=== PATIENT | male | born 1980 | race African-American/Black ===

== ENCOUNTER 2018-01-26 15:42 | Emergency (ER) | payer OTHER ==
[2018-01-26 16:06] VITALS: BP 144/100; PULSE 77; TEMP 98; BMI 34.9
--- NOTE | 2018-01-26 16:07 | PDOC ---
Rapid Medical Evaluation Time Seen by Provider: 01/26/18 16:01 Medical Evaluation: Allergies Allergy/AdvReac Type Severity Reaction Status Date / Time Penicillins Allergy Intermediate Rash Verified 05/11/16 15:28 01/26/18 16:01 The patient complains of: recent dx of gallstones, changed diet since but ate sausage this am and now with epigastric pain and intermittent lscp ( aching) . also c/o tingling to BUE, no weakness/ numbness, no hx htn On brief exam: bp 144/100, tenderness to epigastric area and mild ruq [id number]. no cva tenderness, lcta The patient ordered for: ekg, labs, iv, protonix The patient to proceed to the ED Discharge Disposition - Diagnosis Epigastric abdominal pain - Referrals - Patient Instructions - Post Discharge Activity
[2018-01-26] MEDS ORDERED: PANTOPRAZOLE SODIUM 40 MG in SODIUM CHLORIDE 100 ML IVPB ONE (16:08)
[2018-01-26] MEDS ORDERED: MAG HYDROX/AL HYDROX/SIMETH 30 ML UNIT-DOSE CUP PO ONE (16:36)
[2018-01-26 16:42] LABS: BASO % 0.6 % (0-2.0); EOS % 0.8 % (0-4.5); HEMATOCRIT 43.6 % (35.4-49); HEMOGLOBIN 14.6 GM/dL (11.7-16.9); LYMPH % 29.2 % (8-40); MCH 30.1 pg (25.7-33.7); MCHC 33.6 g/dl (32.0-35.9); MEAN CELL VOLUME 89.6 fl (80-96); MEAN PLT VOLUME 8.3 fl (7.5-11.1); MONO % 5.1 % (3.8-10.2); NEUT % 64.3 % (42.8-82.8); PLATELET COUNT 299 K/MM3 (134-434); RBC 4.87 M/mm3 (4.00-5.60); RDW 12.4 % (11.9-15.9); WHITE BLOOD COUNT 5.9 K/mm3 (4.0-10.0)
--- NOTE | 2018-01-26 16:56 | PDOC ---
Attending Attestation - Resident Resident Name: GreyJhonny - ED Attending Attestation I have performed the following: I have examined & evaluated the patient, The case was reviewed & discussed with the resident, I agree w/resident's findings & plan, Exceptions are as noted - HPI HPI: 01/26/18 16:55 37 yo M presenting to the ER with intermittent epigastric pain since last night He was seen for similar symptoms in August, did not know what his work up was Worse after eating Pain radiates to the left upper abdomen No nausea, vomiting, fevers, chills, chest pain - Physicial Exam PE: 01/26/18 16:56 GENERAL: The patient is in no acute distress. HEAD: Normal with no signs of trauma. NECK: Normal range of motion, supple without lymphadenopathy, JVD, or masses. LUNGS: Breath sounds equal, clear to auscultation bilaterally. No wheezes, and no crackles. HEART:Regular rate and rhythm, normal S1 and S2 without murmur, rub or gallop. ABDOMEN: Soft, nontender, normoactive bowel sounds. No guarding, no rebound. No masses palpable. EXTREMITIES: Normal range of motion, no edema. No clubbing or cyanosis. No erythema, or tenderness. NEUROLOGICAL: Cranial nerves II through XII grossly intact. Normal speech. No focal neurological deficits. MUSCULOSKELETAL: Back non-tender to palpation, no CVA tenderness SKIN: Warm, Dry, normal turgor, no rashes or lesions noted. - Medical Decision Making 01/26/18 19:16 Laboratory Tests 01/26/18 01/26/18 01/26/18 16:23 16:23 17:10 WBC 5.9 Hgb 14.6 Hct 43.6 Plt Count 299 Alkaline Phosphatase 71 Creatine Kinase Index 0.7 CK-MB (CK-2) 1.7 Troponin I < 0.02 Urine Ketones Negative Urine Blood Negative Ur Leukocyte Esterase 2+ H Urine WBC (Auto) 9 Urine RBC (Auto) 2 US: cholelithiasis, no cholecystitis Pt po challenged Tolerated po with no vomiting Pain present but less than prior Will discharge to home Follow up with pmd
--- NOTE | 2018-01-26 17:04 | PDOC ---
History of Present Illness - General Chief Complaint: Pain, Acute Stated Complaint: UPPER ABDOMINAL PAIN Time Seen by Provider: 01/26/18 16:01 History Source: Patient Exam Limitations: No Limitations - History of Present Illness Initial Comments: 01/26/18 16:47 37 yo male pmh of asthma and childhood murmur (not followed by cardiology) presents to the ED for epigastric abdominal pain that started last night. Patient states he has had intermittent abdominal pain since August and was seen in an ER in [place] at that time without knowledge of findings on imaging. Pain is located in the epigastric region described as sharp with radiation to the left flank and associated with eating fried foods. Denies sour taste in the mouth or belching. Denies alcohol, smoking or NSAID use, nausea, vomiting, fevers, chills, changes in bowel or bladder habits (no blood) CP, SOB. Past History - Past Medical History Allergies/Adverse Reactions: Allergies Allergy/AdvReac Type Severity Reaction Status Date / Time Penicillins Allergy Intermediate Rash Verified 01/26/18 16:06 Home Medications: Ambulatory Orders Ciprofloxacin [Cipro -] 500 mg PO Q12H #6 tablet 01/26/18 Asthma: Yes Cardiac Disorders: Yes (MURMUR) GI Disorders: Yes (GERD) - Immunization History Td Vaccination: No Immunization Up to Date: Yes - Suicide/Smoking/Psychosocial Hx Smoking Status: No Smoking History: Never smoked Have you smoked in the past 12 months: No Number of Cigarettes Smoked Daily: 0 Cigars Per Day: 0 Information on smoking cessation initiated: No Hx Alcohol Use: No Drug/Substance Use Hx: No Substance Use Type: None Review of Systems - Review of Systems Constitutional: No: Chills, Fever Respiratory: No: Shortness of Breath Cardiac (ROS): No: Chest Pain ABD/GI: Yes: Other (epigastric pain sharp. Associated with fried foods). No: Constipated, Diarrhea, Nausea, Vomiting : No: Burning, Dysuria, Hematuria Musculoskeletal: No: Back Pain *Physical Exam - Vital Signs Last Vital Signs Temp Pulse Resp BP Pulse Ox 98.0 F 77 16 144/100 100 01/26/18 16:04 01/26/18 16:04 01/26/18 16:04 01/26/18 16:04 01/26/18 16:04 - Physical Exam General Appearance: Yes: Nourished, Appropriately Dressed. No: Apparent Distress HEENT: positive: EOMI Respiratory/Chest: positive: Lungs Clear, Normal Breath Sounds. negative: Crackles Cardiovascular: positive: Regular Rhythm, Regular Rate, S1, S2. negative: Edema , JVD, Murmur Vascular Pulses: Dorsalis-Pedis (R): 3+, Doralis-Pedis (L): 3+ Gastrointestinal/Abdominal: positive: Normal Bowel Sounds, Tender (epigastric and LUQ), Flat, Soft. negative: Pulsatile Mass, Protuberent, Distended, Guarding, Rebound Extremity: positive: Normal Capillary Refill Integumentary: positive: Normal Color, Dry, Warm Neurologic: positive: Fully Oriented, Alert, Normal Mood/Affect ED Treatment Course - LABORATORY CBC & Chemistry Diagram: 01/26/18 16:23 01/26/18 16:23 - RADIOLOGY Radiology Studies Ordered: Category Date Time Status ABDOMEN US -LIMITED [US] Stat Ultrasound 01/26/18 16:44 Ordered Medical Decision Making - Medical Decision Making 01/26/18 18:35 37 yo male pmh of asthma and childhood murmur (not followed by cardiology) presents to the ED for epigastric abdominal pain that started last night. Patient states he has had intermittent abdominal pain since August and was seen in an ER in [place] at that time without knowledge of findings on imaging. Pain is located in the epigastric region described as sharp with radiation to the left flank and associated with eating fried foods. Denies sour taste in the mouth or belching. Denies alcohol, smoking or NSAID use, nausea, vomiting, fevers, chills, changes in bowel or bladder habits (no blood) CP, SOB. Exam: Heart and lungs normal Abdominal- normal appearance. normaoactive sounds, soft, no guarding, distention. negative rebound, rovsings, murphys. Tenderness to epigastric and LUQ to palpation. Patient received protonix and maalox with improvement of abdominal pain Will PO challenge since symptoms are brought on with food and reassess 01/26/18 19:10 UA shows 2+ Leuk. Urine culture ordered with [facility] follow up if it becomes symptomatic RUQ ultrasound shows cholethiasis with acute cholecystitis Likely GERD vs Gastritis Patients pain improved and able to eat. Will discharge home with PCP and GI follow up and strict return precautions for abdominal pain/cholecystitis *DC/Admit/Observation/Transfer Diagnosis at time of Disposition: Epigastric abdominal pain - Discharge Dispostion Disposition: HOME Condition at time of disposition: Good Decision to Admit order: No - Referrals Referrals: [facility] [place] [Provider Group] Kemal Mann MD [Staff Physician] - - Patient Instructions Printed Discharge Instructions: DI for Abdominal Pain-Adult, DI for Gastroesophageal Reflux Disease (GERD) Additional Instructions: Please follow up and make an appointment with the [facility] Mann referred. Please take over the counter Zantac as needed for abdominal pain as directed on the box Please return to the Emergency Room for new or worsening symptoms including but not limited to: high fevers, nausea/vomiting or persistent right upper abdomen pain. Thank you - Post Discharge Activity Forms/Work/School Notes: Back to Work
[2018-01-26 17:06] LABS: ALBUMIN 3.8 g/dl (3.4-5.0); ALK PHOS 71 U/L (45-117); ANION GAP 6 MMOL/L (8-16); BILIRUBIN,TOTAL 1.1 mg/dL (0.2-1); BLOOD UREA NITROGEN 12 mg/dL (7-18); CALCIUM 9.2 mg/dL (8.5-10.1); CHLORIDE 107 mmol/L (98-107); CO2 25 mmol/L (21-32); CREATININE 1.1 mg/dL (0.55-1.3); GLUCOSE,RANDOM 85 mg/dL (74-106); LIPASE 108 U/L (73-393); MAGNESIUM 2.3 mg/dL (1.8-2.4); POTASSIUM 3.9 mmol/L (3.5-5.1); SGOT/AST 22 U/L (15-37); SGPT/ALT 26 U/L (13-61); SODIUM 138 mmol/L (136-145); TOT PROT 7.7 g/dl (6.4-8.2)
[2018-01-26] MEDS ORDERED: MAG HYDROX/AL HYDROX/SIMETH 30 ML UNIT-DOSE CUP ONE (17:17)
[2018-01-26] MEDS ORDERED: PANTOPRAZOLE SODIUM 40 MG/100 ML BAG IVPB ONE (17:17)
[2018-01-26 17:26] LABS: URINE APPEARANCE CLEAR; URINE BILIRUBIN NEGATIVE (<2.0 mg/dL); URINE COLOR LTYELLOW; URINE GLUCOSE (UA) NEGATIVE (NEGATIVE); URINE KETONE NEGATIVE (NEGATIVE); URINE LEUK ESTERASE 2+ (NEGATIVE); URINE NITRITE NEGATIVE (NEGATIVE); URINE PROTEIN NEGATIVE (NEGATIVE); URINE UROBILINOGEN NEGATIVE mg/dL (0.2-1.0)
[2018-01-26 17:33] LABS: EPI CELLS RARE /HPF (FEW)
--- NOTE | 2018-01-28 10:08 | EKG ---
Test Reason : Blood Pressure : / mmHG Vent. Rate : 078 BPM Atrial Rate : 078 BPM P-R Int : 158 ms QRS Dur : 102 ms QT Int : 432 ms P-R-T Axes : 024 019 013 degrees QTc Int : 492 ms NORMAL SINUS RHYTHM WITH SINUS ARRHYTHMIA MINIMAL VOLTAGE CRITERIA FOR LVH, MAY BE NORMAL VARIANT PROLONGED QT WHEN COMPARED WITH ECG OF 11-MAY-2016 15:31, NO SIGNIFICANT CHANGE WAS FOUND Confirmed by FAISAL HAYES MD ([id number]) on 01/28/2018 10:08:29 AM Referred By: Confirmed By:FAISAL HAYES MD
== END 2018-01-26 20:20 | disposition home or self-care (01) ==
LOC: JER 15:42
PROC: 3E033GC Introduction of Other Therapeutic Substance into Peripheral Vein, Percutaneous Approach (ICD-10-PCS; principal; 2018-01-26)
DX: R10.13 Epigastric pain (principal); R01.1 Cardiac murmur, unspecified; K21.9 Gastro-esophageal reflux disease without esophagitis
CPT/HCPCS: 36415; 76705-TC; 80053; 81003; 81015; 82550; 82553; 83690; 83735; 84484; 85025; 87086; 87491; 87591; 93005; 93010; 99283-25

== ENCOUNTER 2018-04-08 17:51 | Emergency (ER) | payer OTHER ==
[2018-04-08 17:56] VITALS: BP 157/93; PULSE 74; TEMP 98.2; BMI 34.7
[2018-04-08] MEDS ORDERED: KETOROLAC TROMETHAMINE 60 MG/2 ML VIAL IM ONE (17:57)
--- NOTE | 2018-04-08 17:57 | PDOC ---
Rapid Medical Evaluation Chief Complaint: Chest Pain Medical Evaluation: Allergies Allergy/AdvReac Type Severity Reaction Status Date / Time Penicillins Allergy Intermediate Rash Verified 04/08/18 17:53 04/08/18 17:55 The patient presents with a chief complaint of: lscp aching and sharp x 1 day, no other complaints, pain began after breakfast worse during day, works as a taxi truck driver I have performed a brief in-person evaluation of this patient; Pertinent physical exam findings: vss, reproducible left sided cp I have ordered the following: ekg, toradol im The patient will proceed to the ED for further evaluation. 04/08/18 17:56 Discharge Disposition - Diagnosis Chest wall discomfort - Referrals - Patient Instructions - Post Discharge Activity
[2018-04-08] MEDS ORDERED: RANITIDINE HCL 150 MG TABLET (FP) PO ONE (19:32)
[2018-04-08] MEDS ORDERED: MAG HYDROX/AL HYDROX/SIMETH 30 ML UNIT-DOSE CUP PO ONE (19:32)
[2018-04-08] MEDS ORDERED: MAG HYDROX/AL HYDROX/SIMETH 30 ML UNIT-DOSE CUP ONE (19:37)
[2018-04-08] MEDS ORDERED: RANITIDINE HCL 150 MG TABLET (FP) ONE (19:37)
--- NOTE | 2018-04-08 20:08 | PDOC ---
History of Present Illness - General Chief Complaint: Chest Pain Stated Complaint: CHEST PAIN Time Seen by Provider: 04/08/18 18:42 History Source: Patient Exam Limitations: No Limitations Past History - Past Medical History Allergies/Adverse Reactions: Allergies Allergy/AdvReac Type Severity Reaction Status Date / Time Penicillins Allergy Intermediate Rash Verified 04/08/18 17:53 Home Medications: Ambulatory Orders Famotidine [Pepcid] 20 mg PO DAILY #30 tablet 04/08/18 Asthma: Yes Cardiac Disorders: Yes (MURMUR) COPD: No CHF: No GI Disorders: Yes (GERD) - Immunization History Td Vaccination: No Immunization Up to Date: Yes - Suicide/Smoking/Psychosocial Hx Smoking Status: No Smoking History: Never smoked Have you smoked in the past 12 months: No Number of Cigarettes Smoked Daily: 0 Cigars Per Day: 0 Information on smoking cessation initiated: No Hx Alcohol Use: No Drug/Substance Use Hx: No Substance Use Type: None Cardiac Specific PMH - Complaint Specific PMHX Angina: No Pulmonary Embolus: No *Physical Exam - Vital Signs Last Vital Signs Temp Pulse Resp BP Pulse Ox 98.2 F 74 16 157/93 100 04/08/18 17:53 04/08/18 17:53 04/08/18 17:53 04/08/18 17:53 04/08/18 17:53 - Physical Exam General Appearance: No: Apparent Distress Respiratory/Chest: positive: Lungs Clear, Normal Breath Sounds, Other (No chest wall TTP). negative: Respiratory Distress Cardiovascular: positive: Regular Rhythm, Regular Rate, S1, S2. negative: Murmur Gastrointestinal/Abdominal: positive: Normal Bowel Sounds, Soft. negative: Tender, Distended, Guarding, Rebound Extremity: positive: Normal Inspection. negative: Pedal Edema, Calf Tenderness Neurologic: positive: Fully Oriented, Alert, Normal Mood/Affect Moderate Sedation - Procedure Monitoring Vital Signs: Procedure Monitoring Vital Signs Temperature 98.2 F 04/08/18 17:53 Pulse Rate 74 04/08/18 17:53 Respiratory Rate 16 04/08/18 17:53 Blood Pressure 157/93 04/08/18 17:53 O2 Sat by Pulse Oximetry (%) 100 04/08/18 17:53 ED Treatment Course - RADIOLOGY Radiology Studies Ordered: Category Date Time Status CHEST PA & LAT [RAD] Stat Radiology 04/08/18 18:30 Taken - Medications Given in the ED: ED Medications Discontinued Medications Generic Name Dose Route Start Last Admin Trade Name Toro PRN Reason Stop Dose Admin Al Hydroxide/Mg Hydroxide 30 ml 04/08/18 19:32 04/08/18 19:38 Mylanta Oral Suspension - PO 04/08/18 19:33 30 ml ONCE ONE Administration Ketorolac Tromethamine 60 mg 04/08/18 17:57 04/08/18 19:36 Toradol Injection - IM 04/08/18 17:58 Not Given ONCE ONE Ranitidine HCl 150 mg 04/08/18 19:32 04/08/18 19:38 Zantac - PO 04/08/18 19:33 150 mg ONCE ONE Administration Medical Decision Making - Medical Decision Making 37 y/o M hx of GERD, asthma, childhood murmur presents with L sided CP from this morning, dull/burning in nature, that started after eating [employer] for breakfast this AM. 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 Pain is constant in nature, but has gotten better on it's own; currently rates it 3/10. Mentions exertion helps improve the pain. Denies smoking, drug use. Denies FH of CAD or MT. Unsure if this is like his GERD; currently not on meds for GERD. Denies fever, cough, sob, abd pain, n/v, dizziness, palpitations. EKG shows NSR at 65 bpm (TWI lead III), unchanged from prior CXR clear Consider possible GERD? Patient heart score of 1 (point given for obesity) Will give Zantac, Maalox and reassess 04/08/18 20:05 Patient feels better after meds given Likely acid reflux Stable for d/c 04/08/18 20:18 *DC/Admit/Observation/Transfer Diagnosis at time of Disposition: Chest wall discomfort GERD (gastroesophageal reflux disease) Qualifiers: Esophagitis presence: esophagitis presence not specified Qualified Code(s): K21.9 - Gastro-esophageal reflux disease without esophagitis - Discharge Dispostion Disposition: HOME Condition at time of disposition: Good Decision to Admit order: No - Prescriptions Prescriptions: Famotidine [Pepcid] 20 mg PO DAILY #30 tablet - Referrals - Patient Instructions Printed Discharge Instructions: DI for Chest Pain, DI for Gastroesophageal Reflux Disease (GERD), GERD Diet Additional Instructions: Thank you for choosing [facility]. It was a pleasure taking care of you. Please follow-up with PCP in 2-3 days for follow-up Avoid greasy/oily foods as they can exacerbate GERD Return to the Emergency Department if your symptoms worsen or persist, you have fever, shortness of breath, chest pain, severe abdominal pain, vomiting, dizziness or other concerning symptoms. - Post Discharge Activity
--- NOTE | 2018-04-09 15:49 | EKG ---
Test Reason : Blood Pressure : / mmHG Vent. Rate : 065 BPM Atrial Rate : 065 BPM P-R Int : 168 ms QRS Dur : 098 ms QT Int : 444 ms P-R-T Axes : 009 031 -15 degrees QTc Int : 461 ms NORMAL SINUS RHYTHM MINIMAL VOLTAGE CRITERIA FOR LVH, MAY BE NORMAL VARIANT BORDERLINE ECG WHEN COMPARED WITH ECG OF 26-JAN-2018 16:02, NO SIGNIFICANT CHANGE WAS FOUND Confirmed by JEROME HALL MD ([id number]) on 04/09/2018 3:48:48 PM Referred By: Confirmed By:JEROME HALL MD
== END 2018-04-08 20:26 | disposition home or self-care (01) ==
LOC: JERFT 17:51
DX: R07.9 Chest pain, unspecified (principal); K21.9 Gastro-esophageal reflux disease without esophagitis
CPT/HCPCS: 71046-TC-FY; 93005; 93010; 99281-25

== ENCOUNTER 2018-05-25 14:45 | Emergency (ER) | payer OTHER ==
--- NOTE | 2018-05-25 15:15 | PDOC ---
Rapid Medical Evaluation Time Seen by Provider: 05/25/18 15:14 Medical Evaluation: Allergies Allergy/AdvReac Type Severity Reaction Status Date / Time Penicillins Allergy Intermediate Rash Verified 04/08/18 17:53 05/25/18 15:15 I have performed a brief in-person evaluation of this patient. The patient presents with a chief complaint of: Epigastric pain this am, worse w / food. No n/v/f/c or change in BM. Had similar pain in past and dx w/ GERD in ED, currently taking prilosec which isn't helping. [place] L upper back pain and tingling to L arm today for 1st time. No sob or diaphoresis. H/o gallstones, asthma. No GI eval in past though has been given f/u Pertinent physical exam findings:Stable and well zaki w/ ttp to epigastrium I have ordered the following:labs/ekg The patient will proceed to the ED for further evaluation. 05/25/18 15:16 Discharge Disposition - Diagnosis Epigastric pain - Referrals - Patient Instructions - Post Discharge Activity
[2018-05-25 15:21] VITALS: BP 155/97; PULSE 67; TEMP 98.3; BMI 34.9
[2018-05-25 15:49] LABS: BASO % 1.1 % (0-2.0); EOS % 1.3 % (0-4.5); HEMATOCRIT 44.1 % (35.4-49); HEMOGLOBIN 15.3 GM/dL (11.7-16.9); LYMPH % 36.7 % (8-40); MCH 31.1 pg (25.7-33.7); MCHC 34.6 g/dl (32.0-35.9); MEAN CELL VOLUME 89.7 fl (80-96); MONO % 9.6 % (3.8-10.2); NEUT % 51.3 % (42.8-82.8); PLATELET COUNT 275 K/MM3 (134-434); RBC 4.91 M/mm3 (4.00-5.60); RDW 12.8 % (11.9-15.9); WHITE BLOOD COUNT 5.6 K/mm3 (4.0-10.0)
[2018-05-25 16:24] LABS: ALBUMIN 3.9 g/dl (3.4-5.0); ALK PHOS 78 U/L (45-117); ANION GAP 6 MMOL/L (8-16); BILIRUBIN,TOTAL 1.1 mg/dL (0.2-1); BLOOD UREA NITROGEN 14 mg/dL (7-18); CALCIUM 9.3 mg/dL (8.5-10.1); CHLORIDE 104 mmol/L (98-107); CO2 28 mmol/L (21-32); CREATININE 1.2 mg/dL (0.55-1.3); GLUCOSE,RANDOM 93 mg/dL (74-106); LIPASE 185 U/L (73-393); POTASSIUM 4.1 mmol/L (3.5-5.1); SGOT/AST 24 U/L (15-37); SGPT/ALT 29 U/L (13-61); SODIUM 138 mmol/L (136-145); TOT PROT 7.8 g/dl (6.4-8.2)
[2018-05-25] MEDS ORDERED: ONDANSETRON *ODT* 4 MG TABLET SL ONE (17:21)
[2018-05-25] MEDS ORDERED: RANITIDINE HCL 150 MG TABLET (FP) PO ONE (17:21)
[2018-05-25] MEDS ORDERED: MAG HYDROX/AL HYDROX/SIMETH -MYLANTA- ORAL SUSPENSION PO ONE (17:21)
--- NOTE | 2018-05-25 17:21 | PDOC ---
History of Present Illness - General Chief Complaint: Nausea/Vomiting Stated Complaint: ABD PAIN Time Seen by Provider: 05/25/18 15:14 History Source: Patient Exam Limitations: No Limitations Past History - Travel Traveled outside of the country in the last 30 days: No Close contact w/someone who was outside of country & ill: No - Past Medical History Allergies/Adverse Reactions: Allergies Allergy/AdvReac Type Severity Reaction Status Date / Time Penicillins Allergy Intermediate Rash Verified 04/08/18 17:53 Home Medications: Ambulatory Orders Famotidine [Pepcid] 20 mg PO DAILY #30 tablet 04/08/18 Asthma: Yes Cardiac Disorders: Yes (MURMUR) COPD: No CHF: No GI Disorders: Yes (GERD) - Immunization History Td Vaccination: No Immunization Up to Date: Yes - Suicide/Smoking/Psychosocial Hx Smoking Status: No Smoking History: Never smoked Have you smoked in the past 12 months: No Number of Cigarettes Smoked Daily: 0 Cigars Per Day: 0 Information on smoking cessation initiated: No Hx Alcohol Use: No Drug/Substance Use Hx: No Substance Use Type: None Review of Systems - Review of Systems Able to Perform ROS?: Yes Is the patient limited [place]ian proficient: No *Physical Exam - Vital Signs Last Vital Signs Temp Pulse Resp BP Pulse Ox 98.3 F 67 17 155/97 100 05/25/18 15:18 05/25/18 15:18 05/25/18 15:18 05/25/18 15:18 05/25/18 15:18 Moderate Sedation - Procedure Monitoring Vital Signs: Procedure Monitoring Vital Signs Temperature 98.3 F 05/25/18 15:18 Pulse Rate 67 05/25/18 15:18 Respiratory Rate 17 05/25/18 15:18 Blood Pressure 155/97 05/25/18 15:18 O2 Sat by Pulse Oximetry (%) 100 05/25/18 15:18 ED Treatment Course - LABORATORY CBC & Chemistry Diagram: 05/25/18 15:35 05/25/18 15:35 - ADDITIONAL ORDERS Additional order review: Laboratory Results 05/25/18 15:35 Sodium 138 Potassium 4.1 Chloride 104 Carbon Dioxide 28 Anion Gap 6 L BUN 14 Creatinine 1.2 Creat Clearance w eGFR > 60 Random Glucose 93 Calcium 9.3 Total Bilirubin 1.1 H AST 24 ALT 29 Alkaline Phosphatase 78 Total Protein 7.8 Albumin 3.9 Lipase 185 05/25/18 15:35 RBC 4.91 MCV 89.7 MCHC 34.6 RDW 12.8 MPV 8.0 Neutrophils % 51.3 D Lymphocytes % 36.7 D Monocytes % 9.6 D Eosinophils % 1.3 Basophils % 1.1 *DC/Admit/Observation/Transfer Diagnosis at time of Disposition: Epigastric pain GERD (gastroesophageal reflux disease) Qualifiers: Esophagitis presence: esophagitis presence not specified Qualified Code(s): K21.9 - Gastro-esophageal reflux disease without esophagitis - Discharge Dispostion Disposition: HOME Condition at time of disposition: Stable Decision to Admit order: No - Referrals Referrals: Urban Canalse MD [Primary Care Provider] - - Patient Instructions Printed Discharge Instructions: DI for Gastroesophageal Reflux Disease (GERD) Additional Instructions: Your lab work was normal today. Her EKG was normal. Pain is most likely from your reflux Take the pepcid twice a day for one week Take the Mylanta daily Follow up with your primary care doctor this week Return to the ED for any new or worsening symptoms - Post Discharge Activity
[2018-05-25] MEDS ORDERED: ONDANSETRON *ODT* 4 MG TABLET ONE (18:57)
[2018-05-25] MEDS ORDERED: MAG HYDROX/AL HYDROX/SIMETH 30 ML UNIT-DOSE CUP ONE (18:57)
[2018-05-25] MEDS ORDERED: RANITIDINE HCL 150 MG TABLET (FP) ONE (18:57)
--- NOTE | 2018-05-25 20:12 | PDOC ---
*Physical Exam - Vital Signs Last Vital Signs Temp Pulse Resp BP Pulse Ox 98.3 F 67 17 155/97 100 05/25/18 15:18 05/25/18 15:18 05/25/18 15:18 05/25/18 15:18 05/25/18 15:18 ED Treatment Course - LABORATORY CBC & Chemistry Diagram: 05/25/18 15:35 05/25/18 15:35 - ADDITIONAL ORDERS Additional order review: Laboratory Results 05/25/18 15:35 Sodium 138 Potassium 4.1 Chloride 104 Carbon Dioxide 28 Anion Gap 6 L BUN 14 Creatinine 1.2 Creat Clearance w eGFR > 60 Random Glucose 93 Calcium 9.3 Total Bilirubin 1.1 H AST 24 ALT 29 Alkaline Phosphatase 78 Total Protein 7.8 Albumin 3.9 Lipase 185 05/25/18 15:35 RBC 4.91 MCV 89.7 MCHC 34.6 RDW 12.8 MPV 8.0 Neutrophils % 51.3 D Lymphocytes % 36.7 D Monocytes % 9.6 D Eosinophils % 1.3 Basophils % 1.1 - Medications Given in the ED: ED Medications Discontinued Medications Generic Name Dose Route Start Last Admin Trade Name Freq PRN Reason Stop Dose Admin Al Hydroxide/Mg Hydroxide 30 ml 05/25/18 17:21 05/25/18 19:14 Mylanta Suspension - PO 05/25/18 17:22 30 ml ONCE ONE Administration Ondansetron HCl 4 mg 05/25/18 17:21 05/25/18 19:14 Zofran Odt - SL 05/25/18 17:22 4 mg ONCE ONE Administration Ranitidine HCl 300 mg 05/25/18 17:21 05/25/18 19:14 Zantac - PO 05/25/18 17:22 300 mg ONCE ONE Administration Medical Decision Making - Medical Decision Making Patient signed out to me by ABHAY Urban Labs reviewed and unremarkable Patient tolerating PO Stable for dc 05/25/18 20:09 *DC/Admit/Observation/Transfer Diagnosis at time of Disposition: Epigastric pain GERD (gastroesophageal reflux disease) Qualifiers: Esophagitis presence: esophagitis presence not specified Qualified Code(s): K21.9 - Gastro-esophageal reflux disease without esophagitis - Discharge Dispostion Disposition: HOME Condition at time of disposition: Stable Decision to Admit order: No - Referrals Referrals: Urban Canales MD [Primary Care Provider] - 2 Days - Patient Instructions Printed Discharge Instructions: DI for Gastroesophageal Reflux Disease (GERD) Additional Instructions: Your lab work was normal today. Her EKG was normal. Pain is most likely from your reflux Take the pepcid twice a day for one week Take the Mylanta daily Follow up with your primary care doctor this week Return to the ED for any new or worsening symptoms - Post Discharge Activity
--- NOTE | 2018-05-26 16:46 | EKG ---
Test Reason : Blood Pressure : / mmHG Vent. Rate : 068 BPM Atrial Rate : 068 BPM P-R Int : 174 ms QRS Dur : 102 ms QT Int : 440 ms P-R-T Axes : 004 029 007 degrees QTc Int : 467 ms NORMAL SINUS RHYTHM MODERATE VOLTAGE CRITERIA FOR LVH, MAY BE NORMAL VARIANT BORDERLINE ECG WHEN COMPARED WITH ECG OF 08-APR-2018 18:03, NO SIGNIFICANT CHANGE WAS FOUND Confirmed by YURI LUNA, GEMMA ([id number]) on 05/26/2018 4:45:55 PM Referred By: Confirmed By:GEMMA WELCH MD
== END 2018-05-25 20:32 | disposition home or self-care (01) ==
LOC: JER 14:45
DX: K21.9 Gastro-esophageal reflux disease without esophagitis (principal)
CPT/HCPCS: 36415; 80053; 83690; 85025; 93005; 93010; 99282-25; Q0162

== ENCOUNTER 2021-03-16 23:24 | Emergency (ER) | payer OTHER ==
[2021-03-16 23:45] VITALS: TEMP 98; BMI 36.1
[2021-03-17 01:18] LABS: BASO % 0.4 % (0-2.0); HEMATOCRIT 39.7 % (35.4-49); HEMOGLOBIN 13.4 GM/dL (11.7-16.9); LYMPH % 38.5 % (8-40); MCHC 33.7 g/dl (32.0-35.9); MEAN CELL VOLUME 88.8 fl (80-96); MEAN PLT VOLUME 7.7 fl (7.5-11.1); MONO % 11.3 % (3.8-10.2); NEUT % 47.8 % (42.8-82.8); PLATELET COUNT 302 10^3/uL (134-434); RBC 4.47 M/mm3 (4.00-5.60); RDW 12.9 % (11.9-15.9); WHITE BLOOD COUNT 5.1 K/mm3 (4.0-10.0)
[2021-03-17 01:34] LABS: CHLORIDE 106 mmol/L (98-107); SODIUM 140 mmol/L (136-145)
[2021-03-17 01:36] LABS: CALCIUM 8.6 mg/dL (8.5-10.1)
[2021-03-17 01:37] LABS: ALBUMIN 3.4 g/dl (3.4-5.0); ANION GAP 7 MMOL/L (8-16); BLOOD UREA NITROGEN 15.5 mg/dL (7-18); CO2 27 mmol/L (21-32); GLUCOSE,RANDOM 99 mg/dL (74-106); MAGNESIUM 2.1 mg/dL (1.8-2.4)
[2021-03-17 01:40] LABS: CREATININE 1.5 mg/dL (0.55-1.3); SGOT/AST 18 U/L (15-37); SGPT/ALT 28 U/L (13-61)
[2021-03-17 01:42] LABS: BILIRUBIN,TOTAL 0.7 mg/dL (0.2-1); TOT PROT 7.6 g/dl (6.4-8.2)
[2021-03-17 01:43] LABS: ALK PHOS 73 U/L (45-117)
[2021-03-17 01:45] LABS: N-TERMINAL BNP 63.4 pg/ml (5-125)
[2021-03-17 03:33] VITALS: BP 142/82; PULSE 75
== END 2021-03-17 02:37 | disposition home or self-care (01) ==
LOC: JER 23:24
DX: R07.89 Other chest pain (principal)
CPT/HCPCS: 36415; 71046-TC-FY; 80053; 83735; 83880; 84484; 85025; 93005; 93010; 99284-25

== ENCOUNTER 2022-07-25 16:47 | Inpatient (IN) | payer OTHER ==
[2022-07-25 16:57] VITALS: BMI 34.9
[2022-07-25] MEDS ORDERED: FAMOTIDINE 20 MG/50 ML IVPB 20 MG/50 ML MG IVPB ONE ×2 (17:32→17:47)
[2022-07-25] MEDS ORDERED: ACETAMINOPHEN 1000 MG/100 ML BAG IVPB ONE (17:33)
[2022-07-25] MEDS ORDERED: ACETAMINOPHEN INJECTION 100 ML IVPB ONE (17:46)
[2022-07-25] MEDS ORDERED: MAG HYDROX/AL HYDROX/SIMETH 30 ML UNIT-DOSE CUP PO ONE (17:51)
[2022-07-25] MEDS ORDERED: MAG HYDROX/AL HYDROX/SIMETH 30 ML UNIT-DOSE CUP ONE (17:59)
[2022-07-25 18:03] LABS: VENOUS BASE EXCESS -0.7 mmol/L (-2-2); VENOUS O2 SATURATION 37.2 % (70-80); VENOUS PCO2 51.2 mmHg (38-52); VENOUS PH 7.326 (7.310-7.410)
[2022-07-25 18:05] LABS: BASO % 0.6 % (0-2.0); EOS % 4.9 % (0-4.5); HEMATOCRIT 43.1 % (35.4-49); HEMOGLOBIN 14.5 GM/dL (11.7-16.9); LYMPH % 38.8 % (8-40); MCH 29.3 pg (25.7-33.7); MCHC 33.5 g/dl (32.0-35.9); MEAN CELL VOLUME 87.3 fl (80-96); NEUT % 45.7 % (42.8-82.8); PLATELET COUNT 302 10^3/uL (134-434); RBC 4.94 M/mm3 (4.00-5.60); RDW 13.2 % (11.9-15.9)
[2022-07-25 18:26] LABS: CALCIUM 8.7 mg/dL (8.5-10.1)
[2022-07-25 18:27] LABS: ALBUMIN 3.5 g/dl (3.4-5.0); BLOOD UREA NITROGEN 18.1 mg/dL (7-18); MAGNESIUM 2.2 mg/dL (1.8-2.4)
[2022-07-25 18:30] LABS: CREATININE 1.3 mg/dL (0.55-1.3); PHOSPHOROUS 3.9 mg/dL (2.5-4.9)
[2022-07-25 18:31] LABS: BILIRUBIN,TOTAL 0.8 mg/dL (0.2-1); TOT PROT 7.5 g/dl (6.4-8.2)
[2022-07-25] MEDS ORDERED: ACETAMINOPHEN 325 MG TABLET (FP) PO PRN (23:10)
[2022-07-25] MEDS ORDERED: METOPROLOL TARTRATE 5 MG/5 ML VIAL IVPUSH PRN (23:24)
[2022-07-26] MEDS ORDERED: MELATONIN 5 MG TABLETS PO PRN (03:19)
[2022-07-26] MEDS ORDERED: ALBUTEROL SO4 HFA INHALER IH PRN (03:19)
[2022-07-26] MEDS ORDERED: FUROSEMIDE 40 MG/4 ML INJECTABLE VIAL IVPUSH ONE (03:19)
[2022-07-26] MEDS ORDERED: HEPARIN NA (PORCINE) 5,000 UNITS/ML 1ML VIAL ONE ×2 (06:49→14:47)
[2022-07-26] MEDS: HEPARIN NA (PORCINE) 5,000 UNITS/ML 1ML VIAL SQ SCH ×3 (06:50→22:27)
[2022-07-26 06:53] LABS: BASO % 0.3 % (0-2.0); EOS % 4.1 % (0-4.5); HEMATOCRIT 41.1 % (35.4-49); HEMOGLOBIN 14.1 GM/dL (11.7-16.9); LYMPH % 28.6 % (8-40); MCH 29.8 pg (25.7-33.7); MCHC 34.2 g/dl (32.0-35.9); MEAN PLT VOLUME 8.4 fl (7.5-11.1); MONO % 10.8 % (3.8-10.2); NEUT % 56.2 % (42.8-82.8); PLATELET COUNT 307 10^3/uL (134-434); RBC 4.72 M/mm3 (4.00-5.60); RDW 13.2 % (11.9-15.9); WHITE BLOOD COUNT 5.8 K/mm3 (4.0-10.0)
[2022-07-26 07:01] LABS: CALCIUM 8.8 mg/dL (8.5-10.1)
[2022-07-26 07:02] LABS: ALBUMIN 3.4 g/dl (3.4-5.0); BLOOD UREA NITROGEN 14.9 mg/dL (7-18); MAGNESIUM 2.2 mg/dL (1.8-2.4)
[2022-07-26 07:05] LABS: CREATININE 1.3 mg/dL (0.55-1.3); PHOSPHOROUS 4.1 mg/dL (2.5-4.9)
[2022-07-26 07:06] LABS: BILIRUBIN,TOTAL 1.2 mg/dL (0.2-1); TOT PROT 7.5 g/dl (6.4-8.2)
[2022-07-26] MEDS ORDERED: PANTOPRAZOLE 20 MG TABLET PO ONE (08:58)
[2022-07-26] MEDS: PANTOPRAZOLE 20 MG TABLET PO SCH (09:03)
[2022-07-26] MEDS ORDERED: FUROSEMIDE 40 MG TABLET (FP) ONE (14:46)
[2022-07-26] MEDS: FUROSEMIDE 40 MG TABLET (FP) PO SCH (14:48)
[2022-07-26] MEDS: SACUBITRIL/VALSARTAN 49 MG-51 MG TABLET PO SCH ×2 (14:48→23:07)
[2022-07-26] MEDS: ATORVASTATIN CA 20 MG TABLET (FP) PO SCH (22:26)
[2022-07-26] MEDS: CARVEDILOL 6.25 MG TABLET (FP) PO SCH (22:27)
[2022-07-27] MEDS: HEPARIN NA (PORCINE) 5,000 UNITS/ML 1ML VIAL SQ SCH ×3 (06:16→21:41)
[2022-07-27 07:58] LABS: BASO % 0.6 % (0-2.0); EOS % 5.1 % (0-4.5); HEMOGLOBIN 14.4 GM/dL (11.7-16.9); MCH 29.8 pg (25.7-33.7); MCHC 34.3 g/dl (32.0-35.9); MEAN CELL VOLUME 87.1 fl (80-96); MEAN PLT VOLUME 8.2 fl (7.5-11.1); MONO % 10.6 % (3.8-10.2); NEUT % 45.7 % (42.8-82.8); PLATELET COUNT 309 10^3/uL (134-434); RBC 4.83 M/mm3 (4.00-5.60); RDW 13.3 % (11.9-15.9); WHITE BLOOD COUNT 4.6 K/mm3 (4.0-10.0)
[2022-07-27 08:20] LABS: ALBUMIN 3.3 g/dl (3.4-5.0); BLOOD UREA NITROGEN 14.3 mg/dL (7-18); MAGNESIUM 2.3 mg/dL (1.8-2.4)
[2022-07-27 08:23] LABS: CREATININE 1.3 mg/dL (0.55-1.3)
[2022-07-27 08:25] LABS: BILIRUBIN,TOTAL 1.1 mg/dL (0.2-1); TOT PROT 7.4 g/dl (6.4-8.2)
[2022-07-27] MEDS: PANTOPRAZOLE 20 MG TABLET PO SCH (10:15)
[2022-07-27] MEDS: CARVEDILOL 6.25 MG TABLET (FP) PO SCH ×2 (10:15→21:42)
[2022-07-27] MEDS: FUROSEMIDE 40 MG TABLET (FP) PO SCH (10:15)
[2022-07-27] MEDS: SACUBITRIL/VALSARTAN 49 MG-51 MG TABLET PO SCH ×2 (10:16→21:42)
[2022-07-27] MEDS ORDERED: SODIUM CHLORIDE NASAL SPRAY 44 ML BOTTLE NS PRN (12:12)
[2022-07-27] MEDS: ATORVASTATIN CA 20 MG TABLET (FP) PO SCH (21:42)
[2022-07-28] MEDS: HEPARIN NA (PORCINE) 5,000 UNITS/ML 1ML VIAL SQ SCH ×3 (05:12→21:43)
[2022-07-28 08:51] LABS: HEMATOCRIT 41.3 % (35.4-49); HEMOGLOBIN 14.2 GM/dL (11.7-16.9); MCH 29.9 pg (25.7-33.7); MCHC 34.3 g/dl (32.0-35.9); MEAN CELL VOLUME 87.1 fl (80-96); MEAN PLT VOLUME 8.8 fl (7.5-11.1); PLATELET COUNT 287 10^3/uL (134-434); RBC 4.74 M/mm3 (4.00-5.60); WHITE BLOOD COUNT 4.3 K/mm3 (4.0-10.0)
[2022-07-28 09:12] LABS: CALCIUM 8.5 mg/dL (8.5-10.1)
[2022-07-28 09:13] LABS: ALBUMIN 3.2 g/dl (3.4-5.0); MAGNESIUM 2.2 mg/dL (1.8-2.4)
[2022-07-28 09:16] LABS: CREATININE 1.3 mg/dL (0.55-1.3); PHOSPHOROUS 3.6 mg/dL (2.5-4.9)
[2022-07-28 09:18] LABS: TOT PROT 6.9 g/dl (6.4-8.2)
[2022-07-28 09:20] LABS: BILIRUBIN,TOTAL 0.7 mg/dL (0.2-1)
[2022-07-28] MEDS ORDERED: FUROSEMIDE 40 MG/4 ML INJECTABLE VIAL IVPUSH SCH (10:00)
[2022-07-28] MEDS: SACUBITRIL/VALSARTAN 49 MG-51 MG TABLET PO SCH ×2 (10:19→21:43)
[2022-07-28] MEDS: PANTOPRAZOLE 20 MG TABLET PO SCH (10:19)
[2022-07-28] MEDS: CARVEDILOL 6.25 MG TABLET (FP) PO SCH ×2 (10:19→21:43)
[2022-07-28] MEDS: ATORVASTATIN CA 20 MG TABLET (FP) PO SCH (21:43)
[2022-07-29] MEDS: HEPARIN NA (PORCINE) 5,000 UNITS/ML 1ML VIAL SQ SCH ×3 (06:13→21:52)
[2022-07-29 07:35] LABS: HEMATOCRIT 41.6 % (35.4-49); HEMOGLOBIN 14.1 GM/dL (11.7-16.9); MCH 29.7 pg (25.7-33.7); MEAN CELL VOLUME 87.4 fl (80-96); MEAN PLT VOLUME 8.9 fl (7.5-11.1); PLATELET COUNT 283 10^3/uL (134-434); RBC 4.75 M/mm3 (4.00-5.60); RDW 13.2 % (11.9-15.9); WHITE BLOOD COUNT 4.4 K/mm3 (4.0-10.0)
[2022-07-29 07:55] LABS: CALCIUM 8.8 mg/dL (8.5-10.1)
[2022-07-29 07:56] LABS: BLOOD UREA NITROGEN 17.3 mg/dL (7-18); MAGNESIUM 2.2 mg/dL (1.8-2.4)
[2022-07-29 07:59] LABS: CREATININE 1.2 mg/dL (0.55-1.3); PHOSPHOROUS 4.2 mg/dL (2.5-4.9)
[2022-07-29] MEDS: SPIRONOLACTONE 25 MG TABLET PO SCH (10:13)
[2022-07-29] MEDS: CARVEDILOL 6.25 MG TABLET (FP) PO SCH ×2 (10:14→21:52)
[2022-07-29] MEDS: PANTOPRAZOLE 20 MG TABLET PO SCH (10:14)
[2022-07-29] MEDS: FUROSEMIDE 40 MG TABLET (FP) PO SCH (10:14)
[2022-07-29] MEDS: SACUBITRIL/VALSARTAN 49 MG-51 MG TABLET PO SCH ×2 (10:14→21:52)
[2022-07-29] MEDS: ATORVASTATIN CA 20 MG TABLET (FP) PO SCH (21:52)
[2022-07-29 23:54] VITALS: RESP 18
[2022-07-30] MEDS: HEPARIN NA (PORCINE) 5,000 UNITS/ML 1ML VIAL SQ SCH ×2 (05:12→13:58)
[2022-07-30] MEDS ORDERED: CARVEDILOL 6.25 MG TABLET (FP) PO SCH (07:57)
[2022-07-30 09:04] LABS: CALCIUM 9.1 mg/dL (8.5-10.1)
[2022-07-30 09:06] LABS: CREATININE 1.3 mg/dL (0.55-1.3); MAGNESIUM 2.3 mg/dL (1.8-2.4); PHOSPHOROUS 4.1 mg/dL (2.5-4.9)
[2022-07-30] MEDS: PANTOPRAZOLE 20 MG TABLET PO SCH (09:47)
[2022-07-30] MEDS: SPIRONOLACTONE 25 MG TABLET PO SCH ×2 (09:47→09:48)
[2022-07-30] MEDS: FUROSEMIDE 40 MG TABLET (FP) PO SCH (09:47)
[2022-07-30] MEDS: SACUBITRIL/VALSARTAN 49 MG-51 MG TABLET PO SCH (09:48)
[2022-07-30 18:36] VITALS: BP 148/95; PULSE 78; TEMP 98
== END 2022-07-30 18:37 | disposition home or self-care (01) | DRG 291 ==
LOC: JER 16:47 → JERBED 17:47 → OBSVTOIN 23:05 → J4S 07-26 20:51
PROVIDERS: ADMIT Internal Medicine; ATTEND Internal Medicine
DX: I11.0 Hypertensive heart disease with heart failure (principal); I50.23 Acute on chronic systolic (congestive) heart failure; K21.9 Gastro-esophageal reflux disease without esophagitis; I42.0 Dilated cardiomyopathy; J45.909 Unspecified asthma, uncomplicated; F41.9 Anxiety disorder, unspecified; R01.1 Cardiac murmur, unspecified; E66.9 Obesity, unspecified; Z68.35 Body mass index [BMI] 35.0-35.9, adult; Z88.0 Allergy status to penicillin; Z91.199 Patient's noncompliance with other medical treatment and regimen due to unspecified reason
CPT/HCPCS: 0241U-QW; 36415; 71045-TC-FY; 71275-TC; 74177-TC; 80048; 80053; 80061; 82803; 83036; 83735; 83880; 84100; 84439; 84443; 84484; 85025; 85027; 93005; 93010; 93306-TC; 94010; 99285-25; G0378; J1644; Q9967

== ENCOUNTER 2023-11-01 00:44 | Emergency (ER) | payer OTHER ==
[2023-11-01 00:52] VITALS: BP 131/90; PULSE 74; RESP 16; TEMP 98.9; BMI 35.3
[2023-11-01] MEDS ORDERED: ACETAMINOPHEN 325 MG TABLET (FP) ONE (01:17)
[2023-11-01] MEDS ORDERED: FAMOTIDINE 20 MG/50 ML IVPB 20 MG/50 ML MG IVPB ONE (01:18)
[2023-11-01] MEDS ORDERED: MAG HYDROX/AL HYDROX/SIMETH 30 ML UNIT-DOSE CUP ONE (01:18)
[2023-11-01] MEDS: MAG HYDROX/AL HYDROX/SIMETH -MYLANTA- ORAL SUSPENSION PO ONE (01:22)
[2023-11-01] MEDS: FAMOTIDINE 20 MG/50 ML IVPB 20 MG in PREMIX 50 IVPB ONE (01:23)
[2023-11-01] MEDS: ACETAMINOPHEN 325 MG TABLET (FP) PO ONE (01:23)
[2023-11-01 02:12] LABS: BASO % 0.7 % (0-2.0); EOS % 3.5 % (0-4.5); HEMATOCRIT 41.8 % (35.4-49); HEMOGLOBIN 14.3 GM/dL (11.7-16.9); LYMPH % 35.9 % (8-40); MCH 30.8 pg (25.7-33.7); MCHC 34.3 g/dl (32.0-35.9); MEAN CELL VOLUME 89.8 fl (80-96); MONO % 8.1 % (3.8-10.2); NEUT % 51.8 % (42.8-82.8); PLATELET COUNT 315 10^3/uL (134-434); RBC 4.66 M/mm3 (4.00-5.60); RDW 12.4 % (11.9-15.9); WHITE BLOOD COUNT 5.6 K/mm3 (4.0-10.0)
[2023-11-01 02:50] LABS: POTASSIUM 4.1 mmol/L (3.5-5.1)
[2023-11-01 02:52] LABS: ALBUMIN 3.8 g/dl (3.4-5.0); BLOOD UREA NITROGEN 17.2 mg/dL (7-18); CALCIUM 8.8 mg/dL (8.5-10.1)
[2023-11-01 02:55] LABS: CREATININE 1.4 mg/dL (0.55-1.3)
[2023-11-01 02:57] LABS: BILIRUBIN,TOTAL 0.8 mg/dL (0.2-1); TOT PROT 7.8 g/dl (6.4-8.2)
== END 2023-11-01 03:08 | disposition home or self-care (01) ==
LOC: FER 00:44
PROC: 3E033GC Introduction of Other Therapeutic Substance into Peripheral Vein, Percutaneous Approach (ICD-10-PCS; principal; 2023-11-01)
DX: R07.89 Other chest pain (principal)
CPT/HCPCS: 36415; 71046-TC-FY; 80053; 84484; 85025; 93005; 99285-25

== ENCOUNTER 2024-06-07 00:43 | Emergency (ER) | payer OTHER ==
[2024-06-07 00:51] VITALS: BP 156/95; PULSE 100; RESP 16; TEMP 98; BMI 37.5
[2024-06-07] MEDS ORDERED: oxyCODONE HCL 5 MG TABLET ONE (01:26)
[2024-06-07] MEDS: oxyCODONE HCL 5 MG TABLET PO ONE (01:28)
[2024-06-07] MEDS ORDERED: IBUPROFEN 600 MG TABLET (FP) PO ONE (02:18)
[2024-06-07] MEDS: IBUPROFEN 600 MG TABLET (FP) PO ONE (02:21)
[2024-06-07 03:15] LABS: POTASSIUM 4.1 mmol/L (3.5-5.1)
[2024-06-07 03:18] LABS: BLOOD UREA NITROGEN 12.9 mg/dL (7-18); CALCIUM 8.6 mg/dL (8.5-10.1)
[2024-06-07 03:21] LABS: CREATININE 1.7 mg/dL (0.55-1.3)
[2024-06-07] MEDS: predniSONE 20 MG TABLET (UD) PO ONE (03:27)
== END 2024-06-07 03:24 | disposition home or self-care (01) ==
LOC: FER 00:43
DX: M19.071 Primary osteoarthritis, right ankle and foot (principal); M79.89 Other specified soft tissue disorders; M79.671 Pain in right foot
CPT/HCPCS: 36415; 73610-TC-RT-FY; 73630-TC-RT-FY; 80048; 99284-25